=== PATIENT | male | born 1955 | race Caucasian/White ===

== ENCOUNTER 2017-09-07 15:10 | Emergency (ER) | payer OTHER ==
[~2017-09-07] VITALS: Ht 172.7 cm; Wt 77.3 kg
[2017-09-07 15:22] LABS: GLUCOSE,POINT OF CARE 213 MG/DL (70-110)
[2017-09-07] MEDS ORDERED: ADAL10SY SQ (15:28)
[2017-09-07] MEDS ORDERED: FOLI1 PO (15:28)
[2017-09-07] MEDS ORDERED: METF500T4 PO (15:28)
[2017-09-07] MEDS ORDERED: HYDR200T4 PO (15:28)
[2017-09-07] MEDS ORDERED: GLIP5 PO (15:28)
[2017-09-07] MEDS ORDERED: ACETAMINOPHEN 325 MG TABLET PO ONE (16:00)
[2017-09-07] MEDS ORDERED: BACITRACIN 0.9 GM PACKET OINTMENT TP ONE (16:00)
[2017-09-07] MEDS ORDERED: POVIDONE-IODINE 10% 15 ML SOLUTION UD TP ONE (16:00)
[2017-09-07] MEDS ORDERED: LIDOCAINE HCL/PF 1% 2 ML VIAL IM ONE (16:00)
[2017-09-07 17:08] VITALS: BP 135/74
== END 2017-09-07 17:13 | disposition home or self-care (01) ==
LOC: EMS 15:12
DX: S01.112A Laceration without foreign body of left eyelid and periocular area, initial encounter (principal); I10 Essential (primary) hypertension; E11.9 Type 2 diabetes mellitus without complications; W18.39XA Other fall on same level, initial encounter; Y93.89 Activity, other specified; Y92.89 Other specified places as the place of occurrence of the external cause; Y99.8 Other external cause status
CPT/HCPCS: 12013; 82962; 99283; J3490

== ENCOUNTER 2017-09-09 18:43 | Emergency (ER) | payer OTHER ==
[~2017-09-09] VITALS: Ht 172.7 cm; Wt 78.6 kg
[~2017-09-09 18:43] MED LIST: ADAL10SY SQ; FOLI1 PO; GLIP5 PO; HYDR200T4 PO; METF500T4 PO
[2017-09-09 19:02] LABS: GLUCOSE,POINT OF CARE 159 MG/DL (70-110)
[2017-09-09 21:34] VITALS: BP 145/75
== END 2017-09-09 21:50 | disposition home or self-care (01) ==
LOC: EMS 18:44
DX: S01.81XD Laceration without foreign body of other part of head, subsequent encounter (principal); E11.9 Type 2 diabetes mellitus without complications; I10 Essential (primary) hypertension; X58.XXXD Exposure to other specified factors, subsequent encounter
CPT/HCPCS: 82962; 99283

== ENCOUNTER 2017-09-17 17:42 | Emergency (ER) | payer OTHER ==
[~2017-09-17] VITALS: Ht 172.7 cm; Wt 77.3 kg
[2017-09-17 17:58] LABS: GLUCOSE,POINT OF CARE 247 MG/DL (70-110)
[2017-09-17 20:53] VITALS: BP 151/90
== END 2017-09-17 20:56 | disposition home or self-care (01) ==
LOC: EMS 17:44
DX: Z48.02 Encounter for removal of sutures (principal); I10 Essential (primary) hypertension; E11.9 Type 2 diabetes mellitus without complications
CPT/HCPCS: 82962; 99283

== ENCOUNTER 2018-10-07 12:47 | Emergency (ER) | payer OTHER ==
[~2018-10-07] VITALS: Ht 172.7 cm; Wt 72.7 kg
[~2018-10-07 12:47] MED LIST changes: +METF-960 PO; -METF500T4 PO
[2018-10-07 13:09] LABS: GLUCOSE,POINT OF CARE 264 MG/DL (70-110)
[2018-10-07 15:39] LABS: GLUCOSE,POINT OF CARE 216 MG/DL (70-110)
[2018-10-07] MEDS ORDERED: KETOROLAC TROMETHAMINE 10 MG TABLET PO ONE (16:15)
[2018-10-07 16:48] LABS: BASOPHILS % (AUTO) 0.8 % (0.0-2.0); EOSINOPHILS % (AUTO) 1.8 % (1.0-6.0); HEMATOCRIT 38.2 % (41-53); HEMOGLOBIN 13.3 g/dL (13.5-17.5); LYMPHOCYTES # (AUTO) 2.1 K/uL (1.0-4.8); LYMPHOCYTES % (AUTO) 31.9 % (22.0-44.0); MEAN CORPUSCULAR HEMOGLOBIN 31.7 pg (26.0-34.0); MEAN CORPUSCULAR HGB CONC 34.7 G/dL (31.0-37.0); MEAN CORPUSCULAR VOLUME 92 fL (80-100); MONOCYTES % (AUTO) 14.9 % (2.0-9.0); NEUTROPHILS # (AUTO) 3.4 K/uL (1.8-7.7); NEUTROPHILS % (AUTO) 50.6 % (40.0-70.0); PLATELET COUNT (AUTO) 287 K/uL (150-450); RED BLOOD CELL COUNT(AUTO) 4.18 MIL/uL (4.50-5.90); RED CELL DISTRIBUTION WIDTH 13.1 % (11.5-14.5)
[2018-10-07 17:00] LABS: ANION GAP 10 mmol/L (8-16); CALCIUM, TOTAL 9.8 mg/dL (8.8-10.5); CARBON DIOXIDE 26 mmol/L (22-29); CHLORIDE 102 mmol/L (98-107); CREATININE 1.07 mg/dL (0.60-1.30); GLOMERULAR FILTR. RATE CALC > 60 mL/min (>60); GLUCOSE,RANDOM 172 mg/dL (70-110); POTASSIUM 4.4 mmol/L (3.5-5.1); SODIUM SERUM 138 mmol/L (136-145); UREA NITROGEN, BLOOD 11 mg/dL (7-18)
[2018-10-07 17:08] LABS: ALANINE AMINOTRANSFERASE 14 U/L (12-78); ALBUMIN 3.6 g/dL (3.4-5.0); ALKALINE PHOSPHATASE 99 U/L (46-116); ASPARTATE AMINOTRANSFERASE 16 U/L (15-37); BILIRUBIN,TOTAL 0.4 mg/dL (0.1-1.0); TOTAL PROTEIN, SERUM 8.1 g/dL (6.4-8.2)
[2018-10-07 18:37] VITALS: BP 147/78
== END 2018-10-07 18:44 | disposition home or self-care (01) ==
LOC: EMS 12:48
DX: L97.519 Non-pressure chronic ulcer of other part of right foot with unspecified severity (principal); I10 Essential (primary) hypertension; E11.9 Type 2 diabetes mellitus without complications
CPT/HCPCS: 87070; 87205